=== PATIENT | female | born 2000 ===

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

== ENCOUNTER → 2022-04-04 | Outpatient (CLI) | payer SELFPAY | END | disposition home or self-care (01) | LOC: LAB SHORT 16:21 | PROVIDERS: Advanced Practice Midwife | DX: Z01.419 Encounter for gynecological examination (general) (routine) without abnormal findings (principal) | CPT/HCPCS: G0123 ==

== ENCOUNTER → 2024-09-26 | Outpatient (CLI) | payer BC | LOC: LAB SHORT 16:02 → LAB 16:02 | DX: Z34.93 Encounter for supervision of normal pregnancy, unspecified, third trimester (principal) | CPT/HCPCS: 87081; 87150 ==

== ENCOUNTER 2024-10-05 18:58 | Inpatient (IN) | payer BC ==
[2024-10-05] VITALS (8 sets, daily range): BP systolic 119–168; BP diastolic 71–99
[~2024-10-05] VITALS: Ht 180.3 cm; Wt 113.6 kg
[2024-10-05] MEDS ORDERED: FentaNYL Citrate 50 MCG/ML 2 ML Injection IV PRN (19:30)
[2024-10-05] MEDS ORDERED: Misoprostol 200 MCG Tab BC PRN (19:35)
[2024-10-05] MEDS ORDERED: Methylergonovine Maleate 0.2MG / ML 1ML Amp IM PRN (19:35)
[2024-10-05] MEDS ORDERED: Calcium Carbonate 500 MG Tab Chew PO PRN (19:35)
[2024-10-05] MEDS ORDERED: Carboprost Tromethamine 250 MCG/ML 1ML Amp IM PRN (19:35)
[2024-10-05] MEDS ORDERED: Oxytocin 10 Unit / ML Vial IM PRN (19:35)
[2024-10-05] MEDS ORDERED: ePHEDrine Sulfate 50 MG/ML 1ML Injection XX PRN (19:35)
[2024-10-05] MEDS ORDERED: Lactated Ringer's 1,000 ML IV SCH ×3 (19:35)
[2024-10-05] MEDS ORDERED: Acetaminophen 500 MG Tab PO PRN (19:35)
[2024-10-05] MEDS ORDERED: OXYTOCIN/RINGER'S LACTATE 500 ML IV PRN (19:35)
[2024-10-05] MEDS ORDERED: FentaNYL 2mcg/ml-Bup 0.1% Epd 250 ML EPI PRN (19:35)
[2024-10-05] MEDS ORDERED: Misoprostol 200 MCG Tab PR PRN (19:35)
[2024-10-05] MEDS ORDERED: Ondansetron HCl 2 MG / ML 2ML Vial IV PRN (19:35)
[2024-10-05] MEDS ORDERED: MAGCIT300 (19:42)
[2024-10-05] MEDS ORDERED: ASPI81CH PO (19:43)
[2024-10-05] MEDS ORDERED: PRENATAL TABLE1 EAC2 PO (19:43)
[2024-10-05] MEDS ORDERED: DOC250 PO (19:43)
[2024-10-05] MEDS ORDERED: Tranexamic Acid 100 ML IV PRN (19:45)
[2024-10-05] MEDS ORDERED: Misoprostol 25 MCG Tab VAG SCH (20:00)
[2024-10-05 20:16] LABS: BASOPHILS ABSOLUTE AUTO 0.06 K/mm3 (0.00-0.23); BASOPHILS PERCENT AUTO 1 % (0-2); EOSINOPHILS ABSOLUTE AUTO 0.21 K/mm3 (0.00-0.68); EOSINOPHILS PERCENT AUTO 2 % (0-6); Hematocrit 32.7 % (33.0-51.0); Hemoglobin 11.3 g/dL (11.5-16.0); IMMATURE GRAN ABSOLUTE AUTO 0.06 K/mm3 (0.00-0.10); IMMATURE GRAN PERCENT AUTO 1 % (0-1); LYMPHOCYTES ABSOLUTE AUTO 1.81 K/mm3 (0.84-5.20); LYMPHOCYTES PERCENT AUTO 16 % (21-46); MONOCYTES ABSOLUTE AUTO 1.11 K/mm3 (0.16-1.47); MONOCYTES PERCENT AUTO 10 % (4-13); Mean Corpuscular HGB 31.8 pg (26.0-34.0); Mean Corpuscular HGB Conc 34.6 g/dL (31.5-36.5); Mean Corpuscular Volume 92 fL (80-100); Mean Platelet Volume 11.5 fL (9.1-12.4); NEUTROPHILS PERCENT AUTO 71 % (41-73); Platelet Count 202 K/mm3 (150-400); RDW Coefficient Variation 13.2 % (11.7-14.2); RDW Standard Deviation 44.8 fL (35.1-46.3); Red Blood Cell Count 3.55 M/mm3 (3.80-5.20); White Blood Cell Count 11.35 K/mm3 (4.00-11.30)
[2024-10-05 20:41] LABS: Albumin, Blood 2.8 g/dL (3.4-5.0); Albumin/Globulin Ratio 0.7 (0.8-1.8); Bilirubin, Total 0.2 mg/dL (0.1-1.0); Calcium, Blood 9.2 mg/dL (8.5-10.1); Creatinine, Blood 0.75 mg/dL (0.40-1.00); Globulin, Blood 3.9 g/dL (2.2-4.0); Potassium, Blood 3.6 mmol/L (3.5-5.5); Total Protein, Blood 6.7 g/dL (6.4-8.2)
[2024-10-05 21:08] LABS: Protein, Urine Random <5.0 mg/dL (0.0-11.9); Protein/Creat Ratio, Ur Random Unable to Calculate
[2024-10-05] MEDS ORDERED: Zolpidem Tartrate 5 MG Tab PO PRN (22:25)
--- NOTE | 2024-10-05 22:25 | NUR ---
[facility]W [address] VARGAS
[2024-10-06] VITALS (29 sets, daily range): BP systolic 117–182; BP diastolic 64–104
[2024-10-06] MEDS ORDERED: OXYTOCIN/RINGER'S LACTATE 500 ML IV SCH ×2 (01:50→03:40)
[2024-10-06] MEDS ORDERED: Lactated Ringer's 1,000 ML IV SCH (08:30)
[2024-10-07] VITALS (14 sets, daily range): BP systolic 131–160; BP diastolic 81–96
[2024-10-07] MEDS ORDERED: Carboprost Tromethamine 250 MCG/ML 1ML Amp IM PRN (02:25)
[2024-10-07] MEDS ORDERED: Lanolin Cream TOP PRN (02:30)
[2024-10-07] MEDS ORDERED: Misoprostol 200 MCG Tab BC PRN (02:30)
[2024-10-07] MEDS ORDERED: Benzocaine Topical Anesthetic Spray 60GM TOP PRN (02:30)
[2024-10-07] MEDS ORDERED: Witch Hazel/Glycerin PADS TOP PRN (02:30)
[2024-10-07] MEDS ORDERED: OXYTOCIN/RINGER'S LACTATE 500 ML IV SCH (02:30)
[2024-10-07] MEDS ORDERED: Docusate Sodium 100 MG Cap PO PRN (02:30)
[2024-10-07] MEDS ORDERED: FLU VACC TS2024-25(6MOS UP)/PF 45 MCG/0.5 ML SYRINGE IM ONE (02:30)
[2024-10-07] MEDS ORDERED: Ibuprofen 400 MG Tab PO PRN (02:30)
[2024-10-07] MEDS ORDERED: Measles/Mumps/Rubella Vaccine 0.5 ML Vial SC ONE (02:35)
[2024-10-07] MEDS ORDERED: Lactated Ringer's 1,000 ML IV SCH (02:35)
[2024-10-07] MEDS ORDERED: Ketorolac Tromethamine 30mg Vial IV PRN (02:35)
[2024-10-07] MEDS ORDERED: Prenatal Vit/FE Fumarate/FA 1 Tab PO SCH (09:00)
[2024-10-08] VITALS (8 sets, daily range): BP systolic 124–164; BP diastolic 71–101
[2024-10-08] MEDS ORDERED: IBUP800 PO (03:35)
[2024-10-08] MEDS ORDERED: ACET500 PO (03:35)
[2024-10-08] MEDS ORDERED: FLU VACC TS2024-25(6MOS UP)/PF 45 MCG/0.5 ML SYRINGE IM SCH (10:00)
--- NOTE | 2024-10-08 15:12 | NUR ---
DISCHARGE EDUCATION PRINTED AND REVIEWED WITH PT. ID BANDS MATCHED AND VERIFIED WITH INFANT AND FOOTPRINT SHEET. ALL QUESTIONS ANSWERED. AMBULATORY PT DISCHARGED HOME TO CARE OF .
--- NOTE | 2024-10-08 16:24 | NUR ---
Tash HERNANDEZ CNM CONSULTED W/DR. EDGE REGARDING INCREASED BP PRIOR TO DISCHARGE. DR. EDGE DOES NOT WANT TO START PO MEDICATIONS AT THIS TIME. PT SHOULD CHECK BP AT HOME AND CALL DR IF 150/100 ON MORE THAN ONE CHECK.
== END 2024-10-08 14:50 | disposition home or self-care (01) | DRG 807 ==
LOC: OBS 18:58 → BC 19:17
PROVIDERS: ADMIT Obstetrics & Gynecology
PROC: 10E0XZZ Delivery of Products of Conception, External Approach (ICD-10-PCS; principal; 2024-10-07)
PROC: 0KQM0ZZ Repair Perineum Muscle, Open Approach (ICD-10-PCS; 2024-10-07)
PROC: 10907ZC Drainage of Amniotic Fluid, Therapeutic from Products of Conception, Via Natural or Artificial Opening (ICD-10-PCS; 2024-10-07)
PROC: 3E0DXGC Introduction of Other Therapeutic Substance into Mouth and Pharynx, External Approach (ICD-10-PCS; 2024-10-07)
PROC: 3E0R3BZ Introduction of Anesthetic Agent into Spinal Canal, Percutaneous Approach (ICD-10-PCS; 2024-10-07)
PROC: 00HU33Z Insertion of Infusion Device into Spinal Canal, Percutaneous Approach (ICD-10-PCS; 2024-10-07)
DX: O13.4 Gestational [pregnancy-induced] hypertension without significant proteinuria, complicating childbirth (principal); Z37.0 Single live birth; Z3A.37 37 weeks gestation of pregnancy; Z98.890 Other specified postprocedural states; Z79.82 Long term (current) use of aspirin; Z79.899 Other long term (current) drug therapy; O70.1 Second degree perineal laceration during delivery
CPT/HCPCS: 36415; 51702; 80053; 82570; 84156; 85025; 86850; 86900; 86901; 90471; 90656; 90707; A9270; J1885; J2405; J2590; J7120

== ENCOUNTER → 2024-11-11 | Outpatient (CLI) | payer BC ==
[~2024-11-11] MED LIST: ACET500 PO; ASPI81CH PO; DOC250 PO; IBUP800 PO; MAGCIT300; PRENATAL TABLE1 EAC2 PO
[2024-11-11 19:34] LABS: Bacterial Vaginosis PCR Negative (NEGATIVE); Candida Group, PCR NOT DETECTED (NOT DETECT); Candida glabrata-krusei, PCR NOT DETECTED (NOT DETECT)
== END | disposition home or self-care (01) ==
LOC: LAB 12:28 → LAB SHORT 12:28
PROVIDERS: Obstetrics & Gynecology
DX: N89.8 Other specified noninflammatory disorders of vagina (principal)
CPT/HCPCS: 81515